=== PATIENT | female | born 1950 | race Caucasian/White ===

== ENCOUNTER → 2020-01-13 | Outpatient (CLI) | payer OTHER ==
[2020-01-13 08:48] LABS: ABSOLUTE NEUTROPHILS 5.6 thou/uL (1.4-8.2); BASOPHILS 0.6 % (0.0-2.0); EOSINOPHILS 4.2 % (0.0-3.0); HEMATOCRIT 41.1 % (37.0-47.0); HEMOGLOBIN 14.1 gm/dL (12.0-15.0); LYMPHOCYTES 21.5 % (24.0-44.0); MCH 33.5 pg (26.0-34.0); MCHC 34.3 g/dL (28.0-37.0); MCV 97.7 fL (80.0-100.0); MONOCYTES 8.5 % (1.0-8.0); PLATELET COUNT 329 thou/uL (150-400); POLYS 65.2 % (36.0-66.0); RBC 4.21 mil/uL (4.20-5.00); RDW 14.7 % (10.5-14.5); WBC 8.6 thou/uL (4.0-11.0)
[2020-01-13 09:04] LABS: CALCIUM 9.4 mg/dL (8.5-10.1); CREATININE 0.7 mg/dL (0.6-1.0); POTASSIUM 3.9 mmol/L (3.5-5.1); TOTAL BILIRUBIN 0.9 mg/dL (0.2-1.0); TOTAL PROTEIN 7.2 g/dL (6.4-8.2)
== END ==
LOC: CAT 07:28
PROVIDERS: ATTEND Internal Medicine Cardiovascular Disease
DX: Z01.818 Encounter for other preprocedural examination (principal); I48.91 Unspecified atrial fibrillation; N28.89 Other specified disorders of kidney and ureter

== ENCOUNTER → 2020-01-13 | Outpatient (CLI) | payer OTHER | LOC: LAB | PROVIDERS: ATTEND Internal Medicine Cardiovascular Disease | DX: Z01.812 Encounter for preprocedural laboratory examination (principal); Z11.59 Encounter for screening for other viral diseases ==

== ENCOUNTER 2020-01-17 06:19 | Observation (INO) | payer OTHER ==
[~2020-01-17] VITALS: Ht 162.6 cm; Wt 84.8 kg
[2020-01-17] VITALS (12 sets, daily range): BP systolic 131–169; BP diastolic 69–109
[2020-01-17] MEDS ORDERED: COZAAR 50 MG TA50 M1 PO (07:42)
[2020-01-17] MEDS ORDERED: DILTIAZEM 24HR240 M1 PO ×2 (07:43→07:59)
[2020-01-17] MEDS ORDERED: DILTIAZEM 24HR120 M1 PO (07:47)
[2020-01-17] MEDS ORDERED: HYDROCHLOROTHIA25 M2 PO ×2 (07:48→07:59)
[2020-01-17] MEDS ORDERED: BISOPROLOL FUMA10 MG PO ×2 (07:49→08:00)
[2020-01-17] MEDS ORDERED: LIPITOR40 MG PO ×2 (07:49→08:00)
[2020-01-17] MEDS ORDERED: BUSPIRONE HCL15 MG PO ×2 (07:50→08:01)
[2020-01-17] MEDS ORDERED: ELIQUIS5 MG PO (07:50)
[2020-01-17] MEDS ORDERED: SUPER THERAVIT1 EACH PO (07:51)
[2020-01-17] MEDS ORDERED: ASA81BEC PO (07:51)
[2020-01-17] MEDS ORDERED: D-BIOTIN1 GM PO (07:52)
[2020-01-17] MEDS ORDERED: B12 ACTIVE1000 MCG PO ×2 (07:53→08:04)
[2020-01-17] MEDS ORDERED: ALIGN4 MG PO ×2 (07:54→08:04)
[2020-01-17] MEDS ORDERED: COZAAR 25 MG TA25 M1 PO (07:57)
[2020-01-17] MEDS ORDERED: DILTIAZEM ER180 M2 PO (07:58)
[2020-01-17] MEDS ORDERED: ELIQUIS5 M1 PO (08:01)
[2020-01-17] MEDS ORDERED: ASPIRIN EC81 M1 PO (08:02)
[2020-01-17] MEDS ORDERED: UNICOMPLEX M TA1 TA1 PO (08:02)
[2020-01-17] MEDS ORDERED: BIOTIN1000 MCG PO (08:03)
[2020-01-17 08:11] LABS: ABSOLUTE NEUTROPHILS 9.9 thou/uL (1.4-8.2); BASOPHILS 0.9 % (0.0-2.0); EOSINOPHILS 2.8 % (0.0-3.0); HEMATOCRIT 42.6 % (37.0-47.0); HEMOGLOBIN 14.5 gm/dL (12.0-15.0); LYMPHOCYTES 12.9 % (24.0-44.0); MCH 33.4 pg (26.0-34.0); MCV 98.3 fL (80.0-100.0); MONOCYTES 6.6 % (1.0-8.0); PLATELET COUNT 327 thou/uL (150-400); POLYS 76.8 % (36.0-66.0); RBC 4.34 mil/uL (4.20-5.00); RDW 14.8 % (10.5-14.5)
[2020-01-17 08:15] LABS: CALCIUM 9.5 mg/dL (8.5-10.1); CREATININE 0.8 mg/dL (0.6-1.0); POTASSIUM 3.4 mmol/L (3.5-5.1)
[2020-01-17 08:21] LABS: ALBUMIN 4.2 g/dL (3.4-5.0); TOTAL BILIRUBIN 0.9 mg/dL (0.2-1.0)
[2020-01-17 08:33] LABS: APTT 29.4 Seconds (24.5-32.8); PROTIME 10.4 Seconds (9.3-11.4)
--- NOTE | 2020-01-17 18:32 | NUR ---
PT ADMITED FROM [facility] [employer]. ADMISSION HX AND ASSESSMENT COMPLETED. HAD HB THIS SHIFT. DR. TORRES NOTIFIED. NEW ORDERS RECEIVED. PRN PAIN MED GIVEN FOR RAE WITH PARTIAL RELIEF. RIGHT GROIN INCISION C/D/I. NO HEMATOMA NOTED. WILL CONTINUE TO MONITOR.
[2020-01-18 00:13] VITALS: BP 137/77
--- NOTE | 2020-01-18 02:07 | NUR ---
RECIEVED CARE OF THIS PATIENT AT 191. PATIENT ALERT AND ORIENTED X4. C/O HEADACHE, TYLENOL GIVEN. CARDIAC CATH SITE DRESSING D/I. NO S/S OF ANY PROBLEMS. NO TENDERNESS, DRAINAGE, REDNESS, HEAT, OR SEWLLING. DENIES PAIN IN THE AREA. HAS VOIDED ADEQUATELY SINCE REMOVAL OF DISLA CATH. SLEPT OFF AND ON DURING THIS SHIFT.
[2020-01-18 04:49] VITALS: BP 141/72
[2020-01-18] MEDS ORDERED: PACERONE 200 M200 M1 PO (08:04)
[2020-01-18] MEDS ORDERED: ELIQUIS5 MG PO (08:04)
[2020-01-18 08:10] VITALS: BP 140/90
[2020-01-18 08:20] VITALS: BP 140/90
[2020-01-18 09:19] VITALS: BP 140/90
--- NOTE | 2020-01-24 11:36 | P ---
[facility] [place] [address] [place] [address] PROCEDURE REPORT Name: ARLENE BARBOZA Room #: 207-P [facility] Dharmesh Alicea#: [id number] Admission: 01/17/20 Attend Phys: Frantz Tee MD Discharge: 01/18/20 Date of : 54 Report #: [id number] THIS REPORT FOR: cc: Asuncion Solorzano MD, W. Russell MD Couchonnal, Luis F. MD ~ CC: Frantz Solorzano PREOPERATIVE DIAGNOSIS: Atrial fibrillation. POSTOPERATIVE DIAGNOSIS: Atrial fibrillation. HISTORY: The patient is a 69-year-old female with recurrent AFib despite antiarrhythmic drug therapy. She is here for AFib ablation. PROCEDURES PERFORMED: 1. Atrial fibrillation ablation, CPT code 68867. 2. 3D mapping EP, CPT code 88410. 3. Intracardiac echo, CPT code 31584. 4. Focal ablation, CPT code 99963. ANESTHESIA: The patient underwent general anesthesia. No anesthesia related complications. DESCRIPTION OF PROCEDURE: The patient underwent informed consent. We discussed the details of the procedure including the risks, which include but not limited to bleeding, vascular damage, cardiac perforation, stroke and NV. She understood these risks and willing to proceed. The patient was brought to EP laboratory in fasting and sedated state, prepped and draped in a sterile fashion. I injected lidocaine at the groin region, obtained access to the right femoral vein x 3, placing 8, 9 and 7-Turkmen short sheath using modified Seldinger technique. Next, a decapolar catheter was placed into the coronary sinus with ease and ICE catheter was placed in the right atrium for transseptal procedure. Using intracardiac ultrasound, I created a 3D geometry of the left atrium with specific emphasis of the two left and two right pulmonary veins. Next, the patient was systemically heparinized and transseptal was performed using an SL1 sheath and a [place] needle, which was straightforward and then I exchanged for the cryo sheath and placed the Lasso catheter in the left atrium and created a detailed 3D voltage map of the left atrium. Next, I started by isolating the pulmonary veins with the cryoablation balloon. The left superior pulmonary vein underwent 3 freezes, first freeze was of 130 seconds' duration and the vein isolated within 120 seconds. I performed a 100-second freeze followed by a 3-minute freeze and the vein was isolated. The left inferior pulmonary vein underwent a single 4-minute freezes, the vein isolated within 30 seconds. I then went to the right superior pulmonary vein. [address] [address] PROCEDURE REPORT Name: ARLENE BARBOZA Room #: [facility] Dharmesh MJanetRJanet#: [id number] Admission: 01/17/20 Attend Phys: Frantz Tee MD Discharge: 01/18/20 Date of : 54 Report #: [id number] This vein underwent 150-second freeze and isolated within 40 seconds. The right inferior pulmonary vein underwent multiple freezes to obtain isolation. It reconnected and the other freeze was performed and resulted in isolation. I then performed a voltage map which showed that we had isolated all pulmonary veins. Given her extensive atrial fibrillation, we decided to perform a posterior roof line as well. I performed 3 freezes anchored from the left superior pulmonary vein and then we remapped and there was no evidence of posterior roof isolation as well. The patient underwent successful DC cardioversion with 200 joules and was in sinus rhythm with sinus cycle length of 965 milliseconds, HI interval 175 milliseconds, QRS duration 80 milliseconds, QT interval 490 milliseconds. As such, the procedure was concluded. The patient received systemic protamine and once ACT was within acceptable range, catheters and sheaths were pulled. Hemostasis was obtained. Gitzkp-cy-olaea suture was performed in the right groin and this was anchored in place using a 3-way stopcock. CONCLUSIONS: 1. Successful atrial fibrillation ablation. 2. Successful isolation of the pulmonary veins. 3. Successful posterior roof line creation. <ELECTRONICALLY SIGNED> By: Frantz Tee MD 01/24/20 1136 [id number] [id number] Frantz Tee MD /nt
== END 2020-01-18 10:15 | disposition home or self-care (01) ==
LOC: CATH 06:19 → 2N 12:49 → CATH 13:25 → 2N 01-18 10:15
PROVIDERS: ADMIT Internal Medicine Cardiovascular Disease; ATTEND Internal Medicine Cardiovascular Disease
DX: I48.91 Unspecified atrial fibrillation (principal); I48.92 Unspecified atrial flutter; I10 Essential (primary) hypertension; E78.5 Hyperlipidemia, unspecified; F41.9 Anxiety disorder, unspecified; F32.9 Major depressive disorder, single episode, unspecified; E66.9 Obesity, unspecified; N20.0 Calculus of kidney; D35.00 Benign neoplasm of unspecified adrenal gland; Z68.31 Body mass index [BMI] 31.0-31.9, adult; Z79.01 Long term (current) use of anticoagulants; Z79.82 Long term (current) use of aspirin; Z79.899 Other long term (current) drug therapy
CPT/HCPCS: 62110; 62900; 65020; 65040; 70005